=== PATIENT | female | born 2000 | race Caucasian/White ===

== ENCOUNTER 2024-09-30 12:15 | Emergency (ER) | payer MEDICAID ==
[~2024-09-30] VITALS: Ht 162.6 cm; Wt 77.6 kg
--- NOTE | 2024-09-30 13:00 | Physician Documentation ---
History of Present Illness ~ Chief Complaint: Sore Throat Stated Complaint: SORE THROAT Time Seen by MD: 13:00 Primary Medical Doctor: ester cerna HPI 24-year-old female presents to the emergency department reporting that she has had a sore throat for a couple of days. She reports that this is about the 3rd time she has had strep throat as an adult. Denies symptoms of cough, cold or congestion. Medication Reconciliation Allergies: Coded Allergies: No Known Allergies (Unverified , 09/30/24) Scheduled Amoxicillin Trihydrate (Amoxicillin), 1 CAP PO Q8H Review of Systems ROS As stated above in the HPI, otherwise all systems are reviewed and negative. Physical Exam Vital Signs: Temperature: 98.3, Source: Temporal, Heart Rate: 109, Respiratory Rate: 18, BP: 138/86, Pulse Oximetry: 98, Weight: 77.600 Oxygen Flow Rate: 0 Physical Exam General: Alert, no apparent distress. HEENT: PERRL, EOMI, no injection, moist mucous membranes. 2+ erythematous exudative tonsils. Neck: Full range of motion. Respiratory: Lungs clear, no respiratory distress. Chest: No accessory muscle use. Cardiovascular: Regular rate and rhythm, no murmurs. Gastrointestinal: Soft, nontender, nondistended. Bowels sounds present. Extremities: Normal range of motion, no deformity. Neurologic: Oriented x4. Psychiatric: Normal mood and affect. Skin: Normal color, warm and dry. No edema, no ecchymosis. Progress Results/Orders Results/Orders Completed Orders - TERRA SHAH NP Strep A Rapid (09/30/24 13:05) Vital Signs 09/30/24 09/30/24 12:22 14:09 Temp 98.3 98.3 Pulse 109 90 Resp 18 17 B/P (MAP) 138/86 110/75 Pulse Ox 98 98 O2 Flow Rate 0 Laboratory Tests Test 09/30/24 13:17 Group A Streptococcus Rapid Positive H Medical Decision Making Additional Comment This is a strep culture. No evidence of peritonsillar abscess. Patient is nontoxic appearing. Appropriate for outpatient treatment with amoxicillin. Appropriate care instructions provided. Departure Time of Disposition: 14:04 Disposition: 01 HOME / SELF CARE / HOMELESS Impression: Primary Impression: Throat swab culture positive Condition: Stable Discharge Instructions: Strep Throat, Adult Additional Instructions: Change toothbrush after 24 hrs on antibiotics. Drink plenty of fluids. Complete full course of antibiotics. Return if worse. Referrals: NO PRIMARY CARE PROVIDER (PCP) Prescriptions Amoxicillin Trihydrate (Amoxicillin) 500 Mg Capsule 1 CAP PO Q8H for 10 Days, #30 CAP Prov: TERRA SHAH ROTARY DUMP OPERATOR 09/30/24 Education Educated: Patient, Family Educated regarding: diagnosis, treatment, prognosis, need for follow up Signature Scribe Signature: no scribe Attestation: The note accurately reflects work and decisions made by me.Terra Shah - NIMA 09/30/24 14:24 TERRA SHAH NP Sep 30, 2024 13:00
[2024-09-30 13:45] LABS: STREP A SCREEN POSITIVE (Neg)
[2024-09-30] MEDS ORDERED: AMOX-101 PO (14:06)
[2024-09-30 14:09] VITALS: BP 110/75; PULSE 90; RESP 17; TEMP 98.3; O2SAT 98
== END 2024-09-30 14:08 | disposition home or self-care (01) ==
LOC: ER 12:16
DX: J02.0 Streptococcal pharyngitis (principal)
CPT/HCPCS: 87880; 99283

== ENCOUNTER 2024-10-12 14:00 | Emergency (ER) | payer MEDICAID ==
[~2024-10-12] VITALS: Ht 162.6 cm; Wt 77.7 kg
--- NOTE | 2024-10-12 14:57 | Physician Documentation ---
History of Present Illness ~ Chief Complaint: Wrist pain Stated Complaint: L WRIST PAIN Time Seen by MD: 14:51 Primary Medical Doctor: ester [facility] Source: patient Mode of Arrival: POV Exam Limitations: no limitations HPI 24-year-old female with complaints of left wrist pain for approximately 6 months. Patient has not had any formal imaging or diagnosis. Patient is wearing a wrist splint. 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 Patient is concerned because she has decreased range of motion. Tetanus within 5 years: Yes Medication Reconciliation Allergies: Coded Allergies: No Known Allergies (Unverified , 10/12/24) Discontinued Medications Amoxicillin Trihydrate (Amoxicillin), 1 CAP PO Q8H Discontinued Reason: Auto Discontinued Review of Systems All Other Systems at this time: Reviewed and Negative Physical Exam Vital Signs: Heart Rate: 119, Respiratory Rate: 16, BP: 119/89, Pulse Oximetry: 98, Weight: 77.700 Oxygen Flow Rate: 0 General Appearance: alert, WD/WN, no apparent distress Respiratory: lungs clear, normal breath sounds, no respiratory distress Chest: no accessory muscle use, chest non-tender Cardiovascular: normal peripheral pulses, regular rate, rhythm, no edema Wrist Left wrist with tenderness to the posterior and anterior aspect no obvious deformities no erythema. Moderately reduced range of motion with flexion- extension. Sensation circulation to all fingers Progress Results/Orders Results/Orders Orders - ROSALIA PADRON S[employer]T ENGINEER Ortho Orders (10/12/24 14:56) Vital Signs 10/12/24 10/12/24 14:33 15:33 Temp 98.2 Pulse 119 63 Resp 16 16 B/P (MAP) 119/89 110/84 Pulse Ox 98 98 O2 Flow Rate 0 EKG/XRAY/CT/US/VASC/MRI Bone/Soft Tissue X-Ray (Ext.) : Interpreted By: radiologist Additional Comment CLINICAL INDICATION: left wrist pain TECHNIQUE: 3 radiographic views of the left wrist were obtained. Comparison: None FINDINGS/IMPRESSION: There is no evidence of acute fracture or dislocation. The visualized joint space is well maintained. The alignment is anatomical. There is no radiopaque foreign body. Medical Decision Making Findings Three to evaluate for any old fractures as she was not sober when she initially injured the wrist but has had pain for several months. X-ray was unremarkable f or any significant findings. Discussed the importance of primary care. Wrist Diff Dx:Considerations: Include: Arthritis, DJD, Carpal tunnel snydrome, Fracture-carpal, Fracture-radius, Fracture-ulna, Strain, Other Departure Time of Disposition: 14:54 Disposition: 01 HOME / SELF CARE / HOMELESS Impression: Primary Impression: Wrist joint pain Condition: Stable Discharge Instructions: Tendinitis, [id number], Wrist Pain, Adult Additional Instructions: Maintain appointment with primary care as you will likely need a formal documentation and imaging including MRI to properly evaluate chronic wrist pain. I would advise talking to your primary care about physical therapy as well you should be doing some passive and active range of motion with your wrist a few times a day. Take Tylenol and ibuprofen as needed for [id number] pain. CLINICAL INDICATION: left wrist pain TECHNIQUE: 3 radiographic views of the left wrist were obtained. Comparison: None FINDINGS/IMPRESSION: There is no evidence of acute fracture or dislocation. The visualized joint space is well maintained. The alignment is anatomical. There is no radiopaque foreign body. Referrals: NO PRIMARY CARE PROVIDER (PCP) Education Educated: Patient Educated regarding: diagnosis, treatment, need for follow up Signature Scribe Signature: No Scribe Attestation: The note accurately reflects work and decisions made by me.Rosalia Padron - MITRA 10/12/24 14:56 ROSALIA PADRON NP Oct 12, 2024 14:57
[2024-10-12 15:33] VITALS: BP 110/84; PULSE 63; RESP 16; TEMP 98.2; O2SAT 98
== END 2024-10-12 15:25 | disposition home or self-care (01) ==
LOC: ER 14:01
DX: M25.532 Pain in left wrist (principal)
CPT/HCPCS: 29125; 73110; 99283